=== PATIENT | female | born 2005 | race Caucasian/White ===

== ENCOUNTER 2023-07-19 06:15 | Day surgery (SDC) | payer OTHER, SELFPAY ==
[2023-07-19] VITALS (16 sets, daily range): BP systolic 66–157; BP diastolic 42–104; BMI 48.0
[2023-07-19] MEDS: Pyridium 200 MG PO (09:30)
--- NOTE | 2023-07-19 09:47 | SUR.PHASEI ---
Patient admitted to PACU with low 02 sat on 10/l m simple mask. Patient is able to take a deep breath. Patient has 'severe' urgency to void, wants to use the bathroom, explained to patient need for bepan use in PACU. Does not want to use same. will
Monitor. Filomena Lawrence RN BSN.
[2023-07-19] MEDS: ATIVAN 1 MG IV (10:18)
--- NOTE | 2023-07-19 10:26 | SUR.PHASEI ---
Patient asking that her Anxiety be treated , DR Rodríguez informed. 1mg of Ativan given per order. Filomena Lawrence RN BSN.
[2023-07-19] MEDS: ZOFRAN 4 MG IV (10:51)
--- NOTE | 2023-07-19 11:06 | SUR.PHASEI ---
Pulmonary hygiene and IS with good effort, despite same 02 sats fall to 85% when resting. Dr Rodríguez/Dena informed. Filomena Lawrence NAIL FEEDER.
--- NOTE | 2023-07-19 11:27 | SUR.PHASEI ---
Patient over 2 hours in PAC, Dr Rodríguez informed regarding low sats. Patient placed back on 02. E Dulce Lawrence RN BSN.
--- NOTE | 2023-07-19 11:33 | PTCARENOTE ---
Dr Rodríguez informed of low sats , waiting for reply. dedicated driver Stever informed. Filomena Lawrence RN BSN.
--- NOTE | 2023-07-19 11:44 | SUR.PHASEI ---
tissue specialist in communication with Dr Rodríguez. Neil In unit to see patient. Filomena Lawrence RN BSN.
--- NOTE | 2023-07-19 12:01 | SUR.PHASEI ---
Patient seen by DR Rodríguez, Discusion with patient regarding , I was asked by DR Rodríguez to send patient to [facility]. Filomena Lawrence RN BSN.
[2023-07-19] MEDS: VALIUM 5 MG PO (12:14)
== END 2023-07-19 12:24 | disposition home or self-care (01) ==
LOC: SDS 06:15
PROVIDERS: ATTENDING PHYSICIAN Urology
DX: N30.10 Interstitial cystitis (chronic) without hematuria (principal)
CPT/HCPCS: 52204; 52260; 88305